=== PATIENT | male | born 1990 | race Caucasian/White ===

== ENCOUNTER 2020-06-02 11:41 | Emergency (ER) | payer SELFPAY ==
[2020-06-02 11:57] VITALS: BP 142/82; PULSE 59
--- NOTE | 2020-06-02 12:02 | EDM.PDOC ---
ED HPI GENERAL MEDICAL PROBLEM - General Chief Complaint: Laceration Stated Complaint: CUT RIGHT HAND Time Seen by Provider: 06/02/20 11:57 Source of Information: Reports: Patient History Limitations: Reports: No Limitations - History of Present Illness INITIAL COMMENTS - FREE TEXT/NARRATIVE: pt is not able to move his thumb. He has apast history of a mallet finger from a previous fracture. He was pulling some burgers apart with a sharp knife He ended up with a laceration and now he is not able to move histhumb. He had a previous injury to his extensor tendon. Onset: Today, Sudden Duration: Hour(s): Location: Reports: Upper Extremity, Left Associated Symptoms: Reports: No Other Symptoms - Related Data Allergies Allergy/AdvReac Type Severity Reaction Status Date / Time No Known Allergies Allergy Verified 06/02/20 11:56 Home Meds: Home Meds NK [No Known Home Meds] 06/02/20 [History] ED ROS GENERAL - Review of Systems Review Of Systems: See Below Constitutional: Reports: No Symptoms HEENT: Reports: No Symptoms Respiratory: Reports: No Symptoms Cardiovascular: Reports: No Symptoms Endocrine: Reports: No Symptoms GI/Abdominal: Reports: No Symptoms : Reports: No Symptoms Musculoskeletal: Reports: Other (pt has a laceration at the base of the thumb. ) Skin: Reports: No Symptoms Neurological: Reports: No Symptoms ED EXAM, SKIN/RASH Exam: See Below Text/Narrative:: pt has a 1 inch laceration to the web area of the left thumb. He is not able to move the thumb. He has a past history of a mallet thumb after a wrist fracture. Exam Limited By: No Limitations General Appearance: Alert, Anxious, Mild Distress Extremities: Other (pt has a 1 inch laceration in the web area of the thumb. He has no motion of thr thumb. He has some numbness and tingling in the tip of the thumb. He has a 1 inch laceration in the web of the left thumb. The wound was irrigated well and scrubbed after being injected with lidocaine. Pt was found to have complete laceration of his flexor tendon. He had no motion. Ortho in [place] was contacted and reccommended that the pt see the hand surgeon tomorrow. The skin was closed. It wwas dressed with bacatracin and the pt was given a gram of ancef. He was also given a tdap. The finger was splinted. ) Course - Vital Signs Last Recorded V/S: Last Vital Signs Temp 34.9 C L 06/02/20 12:00 Pulse 59 L 06/02/20 12:00 Resp 14 06/02/20 12:00 BP 142/82 H 06/02/20 12:00 Pulse Ox 99 06/02/20 12:00 - Orders/Labs/Meds Orders: Active Orders 24 hr Category Date Time Status Vaccines to be Administered [RC] PER UNIT ROUTINE Care 06/02/20 12:21 Active Meds: Medications Discontinued Medications Generic Name Dose Route Start Last Admin Trade Name Freq PRN Reason Stop Dose Admin Bacitracin 1 dose 06/02/20 12:37 06/02/20 12:44 Bacitracin Oint 1 Gm TOP 06/02/20 12:38 1 dose ONETIME ONE Administration Cefazolin Sodium 1 gm 06/02/20 12:37 06/02/20 12:45 Ancef IM 06/02/20 12:38 1 gm ONETIME ONE Administration Diphtheria/Tetanus/Acell Pertussis 0.5 ml 06/02/20 12:21 06/02/20 12:37 Adacel IM 06/02/20 12:22 0.5 ml .ONCE ONE Administration Lidocaine HCl 5 ml 06/02/20 11:58 06/02/20 12:14 Xylocaine-Mpf 1% INJECT 06/02/20 11:59 5 ml ONETIME ONE Administration Departure - Departure Time of Disposition: 12:41 Disposition: Home, Self-Care 01 Condition: Fair Clinical Impression: Flexor tendon laceration of left hand with open wound - Discharge Information Referrals: PCP,None [Primary Care Provider] - Forms: ED Department Discharge Care Plan Goals: leave splint on until seen elevate, tylenol and motrin for pain Go to [facility] tomorrow--Wednesday for appt at 10 thirty with the hand surgeon Dr Clinton. Keflex 500mg tid. You were given a gram of ancef prior to leaving our ER, Pt did receive a tdap booster. Sepsis Event Note (ED) - Focused Exam Vital Signs: Vital Signs Temp Pulse Resp BP Pulse Ox 06/02/20 12:00 34.9 C L 59 L 14 142/82 H 99 06/02/20 11:55 34.9 C L 59 L 14 142/82 H 99 - My Orders Last 24 Hours: My Active Orders 06/02/20 12:21 Vaccines to be Administered [RC] PER UNIT ROUTINE - Assessment/Plan Last 24 Hours: My Active Orders 06/02/20 12:21 Vaccines to be Administered [RC] PER UNIT ROUTINE
[2020-06-02] MEDS: Diphtheria,Pertussis(Acell),Tetanus Vaccine 0.5 ML SDV IM ONE (12:37)
[2020-06-02] MEDS: Bacitracin Oint 1 GM U/D Packet TOP ONE (12:44)
[2020-06-02] MEDS: ceFAZolin 1 GM Vial IM ONE (12:45)
== END 2020-06-02 13:09 | disposition home or self-care (01) ==
LOC: JP.ED 11:41
DX: S66.822A Laceration of other specified muscles, fascia and tendons at wrist and hand level, left hand, initial encounter (principal); Z23 Encounter for immunization; W26.0XXA Contact with knife, initial encounter
CPT/HCPCS: 90471; 90715; 96372; 99283; J0690; J2001